=== PATIENT | male | born 1965 | race Asian ===

== ENCOUNTER 2018-06-23 13:19 | Day surgery (SDC) | payer BC ==
[~2018-06-23] VITALS: Ht 172.7 cm; Wt 71.0 kg
[2018-06-23] MEDS ORDERED: MULTI VITAMINS1 TAB PO (13:39)
[2018-06-23 13:49] VITALS: BP 134/89; PULSE 64; TEMP 97.6
[2018-06-23 15:35] VITALS: BP 102/83; PULSE 73; TEMP 97.5
[2018-06-23 15:50] VITALS: BP 143/90; PULSE 71
[2018-06-23 16:05] VITALS: BP 126/79; PULSE 73
== END 2018-06-23 16:20 | disposition home or self-care (01) ==
LOC: SDCO 13:19
DX: Z12.11 Encounter for screening for malignant neoplasm of colon (principal)
CPT/HCPCS: J2250; J3010; J7030